=== PATIENT | female | born 1995 | race Caucasian/White ===

== ENCOUNTER 2017-03-21 10:18 | Emergency (ER) | payer OTHER ==
[2017-03-21 10:35] VITALS: BP 128/82; PULSE 88; TEMP 97.9; BMI 25.0
[2017-03-21] MEDS ORDERED: KETOROLAC TROMETHAMINE 60 MG/2 ML VIAL IM ONE (11:02)
[2017-03-21] MEDS ORDERED: hydrOXYzine PAMOATE 25 MG CAPSULE (FP) PO ONE ×2 (11:03→11:15)
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
[2017-03-21] MEDS ORDERED: KETOROLAC TROMETHAMINE 60 MG/2 ML VIAL ONE (11:15)
== END 2017-03-21 11:53 | disposition home or self-care (01) ==
LOC: FER 10:18
PROC: 3E0233Z Introduction of Anti-inflammatory into Muscle, Percutaneous Approach (ICD-10-PCS; principal; 2017-03-21)
DX: G44.209 Tension-type headache, unspecified, not intractable (principal); F32.9 Major depressive disorder, single episode, unspecified
CPT/HCPCS: 99281-25

== ENCOUNTER 2017-06-10 20:39 | Emergency (ER) | payer OTHER ==
[2017-06-10 20:49] VITALS: BP 128/76; PULSE 90; TEMP 97.8; BMI 25.0
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
[2017-06-10] MEDS ORDERED: METOCLOPRAMIDE HCL 10 MG TABLET (FP) PO ONE ×2 (21:24→21:34)
[2017-06-10] MEDS ORDERED: KETOROLAC TROMETHAMINE 60 MG/2 ML VIAL IM ONE (21:24)
[2017-06-10] MEDS ORDERED: KETOROLAC TROMETHAMINE 60 MG/2 ML VIAL ONE (21:34)
== END 2017-06-10 21:59 | disposition home or self-care (01) ==
LOC: FER 20:39
PROC: 3E0233Z Introduction of Anti-inflammatory into Muscle, Percutaneous Approach (ICD-10-PCS; principal; 2017-06-10)
DX: G44.329 Chronic post-traumatic headache, not intractable (principal); F41.8 Other specified anxiety disorders
CPT/HCPCS: 99281-25